=== PATIENT | male | born 1990 | race African-American/Black ===

== ENCOUNTER 2024-07-17 13:51 | Emergency (ER) | payer MEDICAID ==
[~2024-07-17] VITALS: Ht 172.7 cm; Wt 85.0 kg
[2024-07-17 13:59] VITALS: PULSE 77; O2SAT 98
[2024-07-17 14:00] VITALS: BP 139/58; RESP 16; TEMP 98.8; O2SAT 98
[2024-07-17] MEDS ORDERED: ALBU90AE INH (15:21)
== END 2024-07-17 16:08 | disposition home or self-care (01) ==
LOC: ER 14:05
DX: Z76.0 Encounter for issue of repeat prescription (principal); J45.909 Unspecified asthma, uncomplicated
CPT/HCPCS: 99281

== ENCOUNTER 2024-09-10 09:13 | Emergency (ER) | payer MEDICAID ==
[~2024-09-10] VITALS: Ht 175.3 cm; Wt 95.0 kg
[~2024-09-10 09:13] MED LIST: ALBU90AE INH
[2024-09-10 09:17] VITALS: O2SAT 99
[2024-09-10 09:41] VITALS: BP 137/78; PULSE 70; RESP 17; TEMP 36; O2SAT 95
== END 2024-09-10 15:35 | disposition left against medical advice (07) ==
LOC: ER 09:13
DX: J45.909 Unspecified asthma, uncomplicated (principal); R07.9 Chest pain, unspecified; Z53.21 Procedure and treatment not carried out due to patient leaving prior to being seen by health care provider
CPT/HCPCS: 71045; 93005; Z7610